=== PATIENT | male | born 1980 | race Caucasian/White ===

== ENCOUNTER 2021-06-09 19:51 | Observation (INO) | payer OTHER ==
[~2021-06-09] VITALS: Ht 185.4 cm; Wt 90.7 kg
[2021-06-09 20:03] VITALS: BP 136/89
[2021-06-09 20:35] LABS: URINE BILIRUBIN NEGATIVE (Negative); URINE BLOOD TRACE (Negative); URINE CLARITY CLEAR; URINE COLOR YELLOW; URINE GLUCOSE-RANDOM NEGATIVE (Negative); URINE KETONES 2+ (Negative); URINE LEUKOCYTES-REFLEX NEGATIVE (Negative); URINE NITRITE-REFLEX NEGATIVE (Negative); URINE PROTEIN NEGATIVE (Negative); URINE SPECIFIC GRAVITY 1.025 (1.005-1.030); URINE UROBILINOGEN 0.2 E.U./dl (0.2-1.0)
[2021-06-09 20:36] LABS: HEMATOCRIT 47.1 % (42.0-52.0); HEMOGLOBIN 15.9 gm/dL (14.0-18.0); MCH 32.6 pg (26.0-34.0); MCHC 33.9 g/dL (28.0-37.0); MCV 96.1 fL (80.0-100.0); RBC 4.9 mil/uL (4.50-6.00); RDW-CV 13.4 % (10.5-14.5); WBC 14.2 thou/uL (4.0-11.0)
[2021-06-09 20:44] LABS: CREATININE 0.9 mg/dL (0.6-1.3); POTASSIUM 3.5 mmol/L (3.5-5.1)
[2021-06-09 22:37] VITALS: BP 129/81
[2021-06-09 23:00] VITALS: BP 126/76
[2021-06-10 04:51] VITALS: BP 111/67
--- NOTE | 2021-06-10 06:05 | NUR ---
PEDRO ARRIVED ON FLOOR FROM ER AT ABOUT 2245. PATIENT ADMISSION HISTORY AND ASSESSMENT WAS COMPLETED CHARTED. IV FLUIDS ARE INFUSING AT NPO. PATIENT HAS BEEN NPO SINCE MIDNIGHT FOR PROCEDURE TODAY. WILL CONTINUE TO MONITOR.
[2021-06-10 08:00] VITALS: BP 112/67
--- NOTE | 2021-06-10 12:20 | NUR ---
PATIENT LEFT THE UNIT AT 0820 FOR HIS PROCEDURE FOR FOREIGN OBJECT REMOVAL.
--- NOTE | 2021-06-10 13:46 | NUR ---
Attempted to assess pt but he was not available due to surgical procedure.
[2021-06-10 16:00] VITALS: BP 147/68
--- NOTE | 2021-06-10 16:45 | NUR ---
CM ASSESSMENT PT AT [facility] FOR REMOVAL OF FOREIGN BODY. PT TO BE DC'D HOME UPON COMPLETION OF PROCEDURE TO REMOVE FOREIGN BODY. NO CM NEEDS NOTED.
[2021-06-10 20:15] VITALS: BP 135/65
[2021-06-10 23:59] VITALS: BP 120/61
[2021-06-11 04:01] VITALS: BP 117/62
--- NOTE | 2021-06-11 05:39 | NUR ---
PT SLEPT OFF AND ON OVERNIGHT, WATCHING TV AND ON PHONE. HAS BEEN UP INDEP TO BATHROOM TO VOID WITHOUT DIFFICULTY. PASSING GAS THIS MORNING HE STATES. ABD DRSG WITH SEROSANG DRAINAGE PRESENT, ABD SOFT. RAC SL IV, REFUSING FLUIDS. TOLERATING FOOD AND DRINK WITHOUT N/V OVERNIGHT. ROOM AIR, VSS. ABLE TO USE CALL LITE AND MAKE NEEDS KNOWN. PO AND IV PAIN MEDS OVERNIGHT.
[2021-06-11 08:41] VITALS: BP 108/61
[2021-06-11] MEDS ORDERED: NORCO5 PO (09:53)
[2021-06-11 10:18] VITALS: BP 108/61
--- NOTE | 2021-06-11 11:10 | NUR ---
PT DC TO HOME WITH NURSING STAFF BY WHEELCHAIR ABOUT 1105. IV OUT. PT STABLE. PAIN CONTROLLED. PT DENIED DRESSING CHANGE BEFORE DC. DRESSING CHANGE SUPPLIES GIVEN TO PT TO CHANGE AT HOME. PERSONAL ITEMS SENT WITH PT.
--- NOTE | 2021-06-11 16:13 | NUR ---
CM ASSESSMENT PT RESIDES WITH PARTNER AND CHILDREN IN A HOME. PT USES NO DME AND IS IND FOR ALL ADLS. PT HAS NO SKILLED, REHAB, OR HH HX. PT DC'D HOME WITH NO CM NEEDS.
--- NOTE | 2021-06-15 12:00 | OP ---
[facility] [address] [place] [address] OPERATIVE REPORT Name: ROSELYN THAYER Room: [address] [place]#: [id number] Admission: 06/09/21 Attend Phys: Salbador Simon Discharge: 06/11/21 Date of : 80 Report #: [id number] THIS REPORT FOR: cc: FAM - No family physician/PCP FAM - No family physician/PCP Salbador Simon MD ~ DATE OF SURGERY: 06/10/2021 PREOPERATIVE DIAGNOSIS: Rectal foreign body. POSTOPERATIVE DIAGNOSIS: Rectal foreign body. OPERATION: Exploratory laparotomy with transanal removal of rectal foreign body. SURGEON: Salbador Simon MD ANESTHESIA: General. ESTIMATED BLOOD LOSS: Minimal. SPECIMENS: None. DESCRIPTION OF PROCEDURE: After informed consent was obtained, the patient was brought to the operating room and placed supine. SCDs were placed and working, preoperative antibiotics were administered, general anesthesia was induced. The abdomen was prepped and draped in the usual sterile fashion. The patient was placed in the lithotomy position as well. I initially tried to perform a transanal removal of the foreign body. However, I was not able to reach it. Therefore, I elected to make a mini laparotomy incision below the umbilicus. This measured approximately 6 cm. Dissection was made down to the fascia, which was incised. I was able to see the rectal foreign body in the sigmoid colon. I was able to milk it down toward the rectum. Then, transanally, I was able to remove the foreign body easily. I examined the colon to make sure there was no evidence of perforation and it all appeared healthy. The fascia was closed with a running #1 looped PDS. Skin was closed with mariah. Sterile dressings were applied. COMPLICATIONS: None. DISPOSITION: The patient was taken to recovery in satisfactory condition. <ELECTRONICALLY SIGNED> By: Salbador Simon MD 06/15/21 1200 1133 [id number] Simon MD /nt
== END 2021-06-11 11:11 | disposition home or self-care (01) ==
LOC: M.ERS 19:51 → M.TBA-ER 21:35 → M.ERS 22:40 → M.3W 22:54
PROVIDERS: Physician Assistant; ADMIT Surgery; ATTEND Surgery
DX: T18.5XXA Foreign body in anus and rectum, initial encounter (principal); Z20.822 Contact with and (suspected) exposure to COVID-19; F17.210 Nicotine dependence, cigarettes, uncomplicated; X58.XXXA Exposure to other specified factors, initial encounter; Y93.89 Activity, other specified; Y92.89 Other specified places as the place of occurrence of the external cause; Y99.8 Other external cause status; Z98.890 Other specified postprocedural states

== ENCOUNTER 2021-07-02 18:11 | Emergency (ER) | payer OTHER ==
[~2021-07-02 18:11] MED LIST: NORCO5 PO
== END 2021-07-02 19:45 | disposition left against medical advice (07) ==
LOC: M.ERS 18:11
DX: Z20.6 Contact with and (suspected) exposure to human immunodeficiency virus [HIV] (principal); Z53.21 Procedure and treatment not carried out due to patient leaving prior to being seen by health care provider